=== PATIENT | male | born 1955 | race African-American/Black ===

== ENCOUNTER 2022-11-16 16:13 | Inpatient (IN) | payer MEDICARE ==
[~2022-11-16] VITALS: Ht 182.9 cm; Wt 77.8 kg
[2022-11-16] MEDS ORDERED: ASPIRIN 81 MG CHEW TAB PO STA (16:37)
[2022-11-16] MEDS ORDERED: LORAZEPAM INJ 2 MG/ML VIAL IV ONE (16:45)
[2022-11-16 16:46] LABS: BASOPHILS # (AUTO) 0.1 (0.0-0.1); BASOPHILS % 0.6 % (0.0-1.0); EOSINOPHILS # (AUTO) 0.4 (0.0-0.4); EOSINOPHILS % 3.5 % (0.0-6.0); HEMATOCRIT 38.3 % (38.2-49.6); HEMOGLOBIN 14.1 g/dL (14.0-18.0); LYMPHOCYTES # (AUTO) 2.2 (1.0-3.2); MEAN CORPUSCULAR HEMOGLOBIN 35.2 pg (28-32); MEAN CORPUSCULAR HGB CONC 36.8 g/dL (31-35); MEAN CORPUSCULAR VOLUME 95.5 fL (81-99); MONOCYTES # (AUTO) 1.1 (0.2-0.8); MONOCYTES % 8.9 % (4.4-11.3); NEUTROPHILS # (AUTO) 8.5 (2.1-6.9); NEUTROPHILS % 68.8 % (38.7-80.0); PLATELET COUNT 217 x10e3/uL (140-360); RED BLOOD COUNT 4.01 x10e6/uL (4.3-5.7); RED CELL DISTRIBUTION WIDTH 11.8 % (11.7-14.4)
[2022-11-16 16:51] LABS: INR 0.95; PROTHROMBIN TIME 13.2 seconds (11.9-14.5)
[2022-11-16 16:52] LABS: PARTIAL THROMBOPLASTIN TIME 31.1 seconds (23.8-35.5)
[2022-11-16 16:59] LABS: AMPHETAMINES SCREEN,URINE NEGATIVE (NEGATIVE); BENZODIAZEPINES SCREEN,URINE NEGATIVE (NEGATIVE); COLOR,URINE YELLOW (YELLOW); PHENCYCLIDINE SCREEN,URINE NEGATIVE (NEGATIVE)
[2022-11-16 17:00] LABS: CLARITY,URINE SL CLOUDY (CLEAR); KETONES,URINE NEGATIVE (NEGATIVE); LEUKOCYTE ESTERASE ,URINE NEGATIVE (NEGATIVE); NITRITE,URINE NEGATIVE (NEGATIVE); PROTEIN,URINE DIPSTICK NEGATIVE (NEGATIVE); URINE UROBILINOGEN 1 mg/dL (0.2 - 1)
[2022-11-16 17:02] LABS: ALANINE AMINOTRANSFERASE 44 IU/L (0-55); ALBUMIN 3.8 g/dL (3.5-5.0); ALBUMIN/GLOBULIN RATIO 1.2 (0.8-2.0); ALKALINE PHOSPHATASE 78 IU/L (40-150); ANION GAP 20.9 mmol/L (8-16); CALCIUM 8.5 mg/dL (8.4-10.2); CARBON DIOXIDE 21 mmol/L (22-29); CHLORIDE 100 mmol/L (98-107); CREATINE KINASE 1102 IU/L (30-200); CREATININE, SERUM 0.85 mg/dL (0.72-1.25); GLUCOSE 100 mg/dL (74-118); LIPASE 39 U/L (8-78); SODIUM 139 mmol/L (136-145)
[2022-11-16 17:05] LABS: POTASSIUM 2.9 mmol/L (3.5-5.1)
[2022-11-16 17:09] LABS: BACTERIA,URINE FEW /HPF; EPITHELIAL CELLS,URINE RARE /LPF; RBC,URINE 0-5 /HPF (0-5); WBC,URINE (MAN) 0-5 /HPF (0-5)
[2022-11-16] MEDS ORDERED: KCL 40MEQ/0.9% SOD CHL 1,000 ML IV ONE (17:15)
[2022-11-16 17:21] LABS: BLOOD UREA NITROGEN < 5 mg/dL (7-26)
[2022-11-16 17:22] LABS: BUN/CREATININE RATIO 6 (6-25)
[2022-11-16] MEDS ORDERED: MAGNESIUM SULFATE 2GM/50ML 50 ML IV ONE (17:30)
[2022-11-16] MEDS ORDERED: LORAZEPAM INJ 2 MG/ML VIAL IV PRN ×3 (18:00→20:45)
[2022-11-16] MEDS ORDERED: NITROGLYCERIN 0.4 MG SUBL SL PRN (18:00)
[2022-11-16] MEDS ORDERED: ONDANSETRON HCL INJ 2MG/ML 2ML 2 MG/ML VIAL IV PRN (18:00)
[2022-11-16] MEDS ORDERED: LISINOPRIL40 MG PO (19:54)
[2022-11-16] MEDS ORDERED: NIFEDIPINE ER30 M1 PO (19:54)
[2022-11-16] MEDS ORDERED: DICLOFENAC POTA50 MG PO (19:54)
[2022-11-16 19:55] VITALS: BP 152/83; PULSE 72; RESP 20; TEMP 98.6; O2SAT 99
[2022-11-16 20:00] VITALS: BP 163/86; PULSE 71; RESP 20; TEMP 98.1; O2SAT 100
[2022-11-17] VITALS (8 sets, daily range): BP systolic 145–172; BP diastolic 75–90; PULSE 56–63; RESP 16–20; TEMP 97–98.9; O2SAT 94–100
[2022-11-17 01:32] LABS: CREATINE KINASE MB 5.6 ng/mL (0-5.0)
[2022-11-17] MEDS: LACTATED RINGER'S 1,000 ML INJ SCH ×4 (02:00→18:32)
[2022-11-17 06:05] LABS: BASOPHILS # (AUTO) 0.1 (0.0-0.1); BASOPHILS % 0.7 % (0.0-1.0); EOSINOPHILS # (AUTO) 0.8 (0.0-0.4); EOSINOPHILS % 9.6 % (0.0-6.0); HEMATOCRIT 33.9 % (38.2-49.6); HEMOGLOBIN 12.1 g/dL (14.0-18.0); LYMPHOCYTES # (AUTO) 1.3 (1.0-3.2); LYMPHOCYTES % 14.9 % (18.0-39.1); MEAN CORPUSCULAR HEMOGLOBIN 35.2 pg (28-32); MEAN CORPUSCULAR HGB CONC 35.7 g/dL (31-35); MEAN CORPUSCULAR VOLUME 98.5 fL (81-99); MONOCYTES # (AUTO) 0.9 (0.2-0.8); MONOCYTES % 9.8 % (4.4-11.3); NEUTROPHILS # (AUTO) 5.6 (2.1-6.9); NEUTROPHILS % 64.8 % (38.7-80.0); PLATELET COUNT 166 x10e3/uL (140-360); RED BLOOD COUNT 3.44 x10e6/uL (4.3-5.7); RED CELL DISTRIBUTION WIDTH 11.6 % (11.7-14.4)
[2022-11-17] MEDS: CHLORDIAZEPOXIDE HCL 25 MG CAP PO SCH ×5 (06:13→23:21)
[2022-11-17 06:32] LABS: ALBUMIN/GLOBULIN RATIO 1.1 (0.8-2.0); ANION GAP 10.3 mmol/L (8-16); CHOL/HDL RATIO 1.8 (3.9-4.7); CREATININE, SERUM 0.78 mg/dL (0.72-1.25); MAGNESIUM 1.4 MG/DL (1.3-2.1); POTASSIUM 3.3 mmol/L (3.5-5.1)
[2022-11-17 06:39] LABS: CREATINE KINASE MB 4.7 ng/mL (0-5.0)
[2022-11-17] MEDS ORDERED: POTASSIUM CHLORIDE 20 MEQ TAB CR PO ONE (08:30)
[2022-11-17] MEDS: NIFEDIPINE CR 30 MG TAB PO SCH (09:44)
[2022-11-17] MEDS: LISINOPRIL 20 MG TAB PO SCH (09:46)
[2022-11-17] MEDS: ASPIRIN 81 MG ENTERIC COATED PO SCH (09:47)
[2022-11-17] MEDS: FOLIC ACID 1 MG TAB PO SCH (09:52)
[2022-11-17] MEDS: THIAMINE HCL 100 MG TAB PO SCH (09:52)
[2022-11-18] MEDS: LACTATED RINGER'S 1,000 ML INJ SCH (03:57)
[2022-11-18 04:11] VITALS: BP 149/85; PULSE 56; RESP 20; TEMP 98.9; O2SAT 99
[2022-11-18 05:55] LABS: BASOPHILS % 0.5 % (0.0-1.0); EOSINOPHILS % 11.7 % (0.0-6.0); HEMATOCRIT 36.8 % (38.2-49.6); HEMOGLOBIN 12.8 g/dL (14.0-18.0); LYMPHOCYTES # (AUTO) 1.8 (1.0-3.2); LYMPHOCYTES % 20.6 % (18.0-39.1); MEAN CORPUSCULAR HEMOGLOBIN 34.7 pg (28-32); MEAN CORPUSCULAR HGB CONC 34.8 g/dL (31-35); MEAN CORPUSCULAR VOLUME 99.7 fL (81-99); MONOCYTES # (AUTO) 0.8 (0.2-0.8); MONOCYTES % 8.9 % (4.4-11.3); PLATELET COUNT 163 x10e3/uL (140-360); RED BLOOD COUNT 3.69 x10e6/uL (4.3-5.7); RED CELL DISTRIBUTION WIDTH 11.5 % (11.7-14.4)
[2022-11-18] MEDS: CHLORDIAZEPOXIDE HCL 25 MG CAP PO SCH (06:05)
[2022-11-18 06:18] LABS: ANION GAP 10.7 mmol/L (8-16); CALCIUM 8.4 mg/dL (8.4-10.2); CREATININE, SERUM 0.75 mg/dL (0.72-1.25); MAGNESIUM 1.4 MG/DL (1.3-2.1); PHOSPHORUS 2.9 MG/DL (2.3-4.7); POTASSIUM 3.7 mmol/L (3.5-5.1)
[2022-11-18 08:25] VITALS: BP 150/81; PULSE 55; RESP 18; TEMP 97.8; O2SAT 100
[2022-11-18 09:00] VITALS: BP 150/81; PULSE 55; RESP 18; TEMP 97.8; O2SAT 100
[2022-11-18] MEDS: ASPIRIN 81 MG ENTERIC COATED PO SCH (09:15)
[2022-11-18] MEDS: FOLIC ACID 1 MG TAB PO SCH (09:15)
[2022-11-18] MEDS: LISINOPRIL 20 MG TAB PO SCH (09:16)
[2022-11-18] MEDS: THIAMINE HCL 100 MG TAB PO SCH (09:17)
[2022-11-18] MEDS: NIFEDIPINE CR 30 MG TAB PO SCH (09:17)
[2022-11-18] MEDS ORDERED: CHLORDIAZEPOXID25 MG PO (10:29)
[2022-11-18] MEDS ORDERED: Folic Acid PO (10:29)
[2022-11-18] MEDS ORDERED: B-1100 MG PO (10:29)
[2022-11-18] MEDS ORDERED: CHLORDIAZEPOXIDE HCL 25 MG CAP PO SCH (17:00)
== END 2022-11-18 11:38 | disposition home or self-care (01) | DRG 897 ==
LOC: ER 16:20 → ERHOLD 17:50 → MED/SURG3 19:24 → OBSVTOIN 11-18 09:30
PROVIDERS: ADMIT Family Medicine Adult Medicine; ATTEND Family Medicine Adult Medicine
DX: F10.139 Alcohol abuse with withdrawal, unspecified (principal); E78.5 Hyperlipidemia, unspecified; F17.200 Nicotine dependence, unspecified, uncomplicated; E83.42 Hypomagnesemia; E87.6 Hypokalemia; R74.8 Abnormal levels of other serum enzymes
CPT/HCPCS: 36415; 71045; 80053; 80061; 80307; 80320; 81001; 82550; 82553; 83690; 83735; 84100; 84484; 85025; 85610; 85730; 93005; 96361; 99284; G0378; J2060; J3411; J3475